=== PATIENT | male | born 1995 | race Hispanic/Latino ===

== ENCOUNTER 2020-10-11 00:35 | Emergency (ER) | payer OTHER ==
[~2020-10-11] VITALS: Ht 177.8 cm; Wt 99.5 kg
[2020-10-11 01:32] LABS: HEMATOCRIT 49.5 % (42.0-52.0); HEMOGLOBIN 16.3 g/dl (13.5-17.5); MEAN CORPUSCULAR HEMOGLOBIN 30.1 pg (27.0-33.0); MEAN CORPUSCULAR HGB CONC 32.9 g/dl (32.0-36.5); MEAN CORPUSCULAR VOLUME 91.3 fl (80.0-96.0); PLATELET COUNT, AUTOMATED 330 10^3/uL (150-450); RED BLOOD COUNT 5.42 10^6/uL (4.30-6.10)
[2020-10-11 01:57] LABS: AMPHETAMINES LEVEL URINE NEGATIVE (NEGATIVE); BARBITURATES URINE NEGATIVE (NEGATIVE); BENZODIAZEPINES URINE NEGATIVE (NEGATIVE); CANNABINOIDS URINE NEGATIVE (NEGATIVE); COCAINE METABOLITE URINE NEGATIVE (NEGATIVE); METHADONE URINE NEGATIVE (NEGATIVE); OPIATES URINE NEGATIVE (NEGATIVE); PHENCYCLIDINE URINE NEGATIVE (NEGATIVE)
[2020-10-11 02:12] LABS: ALBUMIN 4.1 GM/DL (3.2-5.2); ALT/SGPT 62 U/L (12-78); BILIRUBIN,DIRECT 0.1 MG/DL (0.0-0.2); BILIRUBIN,TOTAL 0.4 MG/DL (0.2-1.0); BLOOD UREA NITROGEN 18 MG/DL (7-18); CARBON DIOXIDE LEVEL 25 MEQ/L (21-32); CHLORIDE LEVEL 109 MEQ/L (98-107); ETHYL ALCOHOL (ETHANOL) 0.003 % (0.000-0.010); GLOMERULAR FILTRATION RATE > 60.0 (>60); GLUCOSE, FASTING 92 MG/DL (70-100); POTASSIUM SERUM 3.9 MEQ/L (3.5-5.1); SALICYLATE LEVEL < 1.7 MG/DL (5.0-30.0); SODIUM LEVEL 141 MEQ/L (136-145); TOTAL PROTEIN 7.7 GM/DL (6.4-8.2)
[2020-10-11 02:13] LABS: ACETAMINOPHEN LEVEL < 2.0 UG/ML (10.0-30.0)
[2020-10-11 04:34] LABS: RSV AMPLIFICATION NEGATIVE (NEGATIVE)
--- NOTE | 2020-10-11 09:05 | ECGEPIP ---
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
[2020-10-11 16:41] VITALS: BP 117/55
== END 2020-10-11 16:45 ==
LOC: M ED 00:35
DX: R45.851 Suicidal ideations (principal); F17.290 Nicotine dependence, other tobacco product, uncomplicated
CPT/HCPCS: 80048; 80076; 80307; 84443; 85027; 87631; 93005; 99284; G0480

== ENCOUNTER → 2022-06-26 | Outpatient (REF) | payer BC ==
[2022-06-26 22:59] LABS: GC DNA AMPLIFICATION NEGATIVE (NEGATIVE)
== END ==
LOC: M WUC 20:28
PROVIDERS: ATTEND Student in an Organized Health Care Education/Training Program
DX: R30.0 Dysuria (principal)